=== PATIENT | male | born 1985 | race Caucasian/White ===

== ENCOUNTER 2016-06-08 14:44 | Emergency (ER) | payer OTHER ==
[2016-06-08 15:02] VITALS: BP 131/72; PULSE 71; TEMP 98.1; BMI 22.8
[2016-06-08] MEDS ORDERED: FAMOTIDINE 20 MG/50 ML IVPB 50 ML IVPB ONE ×2 (16:03→16:10)
[2016-06-08] MEDS ORDERED: ONDANSETRON 4 MG/2 ML VIAL IVPB ONE (16:03)
[2016-06-08] MEDS ORDERED: SODIUM CHLORIDE 1,000 ML IV STA ×2 (16:04→17:25)
[2016-06-08] MEDS ORDERED: ONDANSETRON 4 MG/2 ML VIAL ONE (16:10)
--- NOTE | 2016-06-08 16:11 | PDOC ---
History of Present Illness - General Chief Complaint: Vomiting/Diarrhea Stated Complaint: VOMITING Time Seen by Provider: 06/08/16 15:52 History Source: Patient Exam Limitations: No Limitations - History of Present Illness Initial Comments: 06/08/16 16:03 30 yo M with no significant PMHx presents with one day history of nausea and vomiting. He states that since yesterday he has had 5-7 bouts of non-bilious vomiting and diarrhea. He has some mild belly pain that he relates to vomiting. Accompanied by subjective fevers, and chills. Denies CP,STRONG,SOB, or palpitations. Timing/Duration: reports: constant, getting worse Quality: reports: moderate Abdominal Pain Onset Location: reports: epigastric Pain Radiation: reports: no radiation Activities at Onset: reports: none Past History - Travel Traveled outside of the country in the last 30 days: No Close contact w/someone who was outside of country & ill: No - Past Medical History Allergies/Adverse Reactions: Allergies Allergy/AdvReac Type Severity Reaction Status Date / Time No Known Allergies Allergy Verified 06/08/16 15:00 Home Medications: Ambulatory Orders No Home Medications 0 dose .ROUTE UTDICT 03/12/13 Ondansetron [Zofran -] 4 mg PO TID #21 tablet 06/08/16 Other medical history: DENIES. - Immunization History Td Vaccination: No - Psycho/Social/Smoking Cessation Hx Anxiety: No Suicidal Ideation: No Smoking Status: No Smoking History: Never smoked Number of Cigarettes Smoked Daily: 0 Hx Alcohol Use: No Review of Systems - Review of Systems Able to Perform ROS?: Yes Is the patient limited [place] proficient: No Constitutional: Yes: Chills, Fever, Loss of Appetite, Malaise, Weakness *Physical Exam - Vital Signs Last Vital Signs Temp Pulse Resp BP Pulse Ox 98.1 F 71 19 131/72 96 06/08/16 15:00 06/08/16 15:00 06/08/16 15:00 06/08/16 15:00 06/08/16 15:00 - Physical Exam General Appearance: Yes: Mild Distress HEENT: positive: EOMI, DEVON Neck: positive: Supple Respiratory/Chest: positive: Lungs Clear, Normal Breath Sounds, Accessory Muscle Use. negative: Respiratory Distress Cardiovascular: positive: Regular Rhythm, Regular Rate, S1, S2. negative: Edema , JVD, Murmur Vascular Pulses: Dorsalis-Pedis (R): 2+, Doralis-Pedis (L): 2+ Gastrointestinal/Abdominal: positive: Normal Bowel Sounds, Flat, Soft. negative : Tenderness Musculoskeletal: positive: Normal Inspection. negative: CVA Tenderness Extremity: positive: Normal Inspection, Normal Range of Motion Integumentary: positive: Normal Color, Dry, Warm. 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 P: * IVF with NS 2L bolus. * Zofran and pepcid * Will discharge home with Zofran. *DC/Admit/Observation/Transfer Diagnosis at time of Disposition: Viral gastroenteritis - Discharge Dispostion Admit: No - Prescriptions Prescriptions: Ondansetron [Zofran -] 4 mg PO TID #21 tablet - Referrals Referrals: Sasha Mao MD [Primary Care Provider] - - Patient Instructions Printed Discharge Instructions: DI for Viral Gastroenteritis -- Adult Additional Instructions: Please take medication as needed. Follow up with PCP in one week. Regular diet. Increase activity as tolerated. If symptoms worsen or develop fever/chills please return to ED. - Post Discharge Activity Work/School Note: Back to Work
--- NOTE | 2016-06-08 16:24 | PDOC ---
Attending Attestation - Resident Resident Name: Cheko Salinas - ED Attending Attestation I have performed the following: I have examined & evaluated the patient, The case was reviewed & discussed with the resident, I agree w/resident's findings & plan, Exceptions are as noted - HPI HPI: 06/08/16 16:22 Healthy 30-year-old male presents with persistent and nonbloody nausea/vomiting/ diarrhea for the last 2 or 3 days, abdominal cramping but no persistent pain. No recent travel, no recent antibiotics, no recent diet change. Positive sick contacts, nieces attend daycare and had similar symptoms. - Physicial Exam PE: 06/08/16 16:23 Vital signs normal. Dry mucosa, no pallor or jaundice. Abdomen is soft/nontender/nondistended. No right lower quadrant tenderness. - Medical Decision Making 06/08/16 16:23 Patient seen and evaluated with the resident. I agree with the overall evaluation, assessment, and management with the following summary of visit: 30-year-old male with symptoms most consistent with gastroenteritis, no red flags on history or physical exam, no peritoneal findings that would suggest focal infectious process. IV fluid rehydration Antacid, antiemetic Reassess, PO trial, and dispo
== END 2016-06-08 19:38 | disposition home or self-care (01) ==
LOC: JER 14:44
PROC: 3E033GC Introduction of Other Therapeutic Substance into Peripheral Vein, Percutaneous Approach (ICD-10-PCS; principal; 2016-06-08)
PROC: 3E0337Z Introduction of Electrolytic and Water Balance Substance into Peripheral Vein, Percutaneous Approach (ICD-10-PCS; 2016-06-08)
DX: A08.4 Viral intestinal infection, unspecified (principal); B97.89 Other viral agents as the cause of diseases classified elsewhere
CPT/HCPCS: 96361; 96365; 96375; 99283-25

== ENCOUNTER 2021-01-31 13:30 | Emergency (ER) | payer OTHER ==
[2021-01-31 13:59] VITALS: BP 122/76; PULSE 89; TEMP 98.6; BMI 24.3
[2021-02-02 00:07] LABS: SARS-CoV-2 NAA Detected (Not Detected)
== END 2021-01-31 15:27 | disposition home or self-care (01) ==
LOC: JER 13:30
DX: A08.4 Viral intestinal infection, unspecified (principal); J06.9 Acute upper respiratory infection, unspecified; Z11.52 Encounter for screening for COVID-19
CPT/HCPCS: 87804; 99283-25; C9803; U0003; U0005

== ENCOUNTER 2022-01-05 10:41 | Emergency (ER) | payer OTHER ==
[2022-01-05 10:55] VITALS: BP 115/82; PULSE 61; RESP 16; TEMP 98.6; BMI 22.1
[2022-01-05] MEDS ORDERED: IBUPROFEN 400 MG TABLET (FP) PO ONE ×2 (10:56→10:59)
== END 2022-01-05 11:52 | disposition home or self-care (01) ==
LOC: FER 10:41
DX: U07.1 COVID-19 (principal)
CPT/HCPCS: 0241U-QW; 99283-25

== ENCOUNTER 2023-02-05 16:34 | Emergency (ER) | payer OTHER ==
[2023-02-05 16:49] VITALS: BP 112/61; PULSE 83; RESP 20; TEMP 98.2; BMI 20.7
[2023-02-05] MEDS ORDERED: FAMOTIDINE 20 MG/50 ML IVPB 20 MG/50 ML MG IVPB ONE ×2 (18:06→18:27)
[2023-02-05] MEDS ORDERED: DICYCLOMINE HCL 20 MG TABLET PO ONE (18:06)
[2023-02-05] MEDS ORDERED: ACETAMINOPHEN 1000 MG/100 ML BAG IVPB ONE (18:06)
[2023-02-05] MEDS ORDERED: DICYCLOMINE HCL 10 MG CAPSULE ONE (18:11)
[2023-02-05] MEDS ORDERED: ACETAMINOPHEN INJECTION 100 ML IVPB ONE (18:11)
[2023-02-05 18:33] LABS: BASO % 0.9 % (0-2.0); EOS % 0.7 % (0-4.5); HEMATOCRIT 46.8 % (35.4-49); MCH 29.8 pg (25.7-33.7); MCHC 34.1 g/dl (32.0-35.9); MEAN CELL VOLUME 87.5 fl (80-96); MEAN PLT VOLUME 9.2 fl (7.5-11.1); MONO % 9.4 % (3.8-10.2); PLATELET COUNT 183 10^3/uL (134-434); RBC 5.35 M/mm3 (4.00-5.60); RDW 13.9 % (11.9-15.9); WHITE BLOOD COUNT 7.8 K/mm3 (4.0-10.0)
[2023-02-05] MEDS ORDERED: LACTATED RINGERS SOLUTION 1,000 ML/1,000 ML INFUS.BAG IV SCH (18:45)
[2023-02-05 19:05] LABS: POTASSIUM 3.8 mmol/L (3.5-5.1)
[2023-02-05 19:07] LABS: CALCIUM 8.9 mg/dL (8.5-10.1)
[2023-02-05 19:08] LABS: ALBUMIN 3.9 g/dl (3.4-5.0); BLOOD UREA NITROGEN 13.4 mg/dL (7-18); MAGNESIUM 1.9 mg/dL (1.8-2.4)
[2023-02-05 19:11] LABS: CREATININE 0.8 mg/dL (0.55-1.3); PHOSPHOROUS 3.7 mg/dL (2.5-4.9)
[2023-02-05 19:12] LABS: TOT PROT 7.4 g/dl (6.4-8.2)
[2023-02-05] MEDS ORDERED: ONDANSETRON *ODT* 4 MG TABLET SL ONE (19:30)
[2023-02-05] MEDS ORDERED: ONDANSETRON *ODT* 4 MG TABLET ONE (19:43)
== END 2023-02-05 20:17 | disposition home or self-care (01) ==
LOC: JER 16:34
PROC: 3E033NZ Introduction of Analgesics, Hypnotics, Sedatives into Peripheral Vein, Percutaneous Approach (ICD-10-PCS; principal; 2023-02-05)
PROC: 3E033GC Introduction of Other Therapeutic Substance into Peripheral Vein, Percutaneous Approach (ICD-10-PCS; 2023-02-05)
DX: R07.9 Chest pain, unspecified (principal); R11.2 Nausea with vomiting, unspecified; R10.9 Unspecified abdominal pain; Z20.822 Contact with and (suspected) exposure to COVID-19
CPT/HCPCS: 0241U-QW; 36415; 80053; 83690; 83735; 84100; 85025; 93005; 93010; 99284-25; Q0162

== ENCOUNTER 2023-05-02 21:34 | Emergency (ER) | payer OTHER ==
[2023-05-02 21:42] VITALS: BP 118/80; PULSE 95; RESP 18; TEMP 98.7; BMI 22.4
[2023-05-02] MEDS ORDERED: ACETAMINOPHEN 500 MG TABLET (FP) ONE (22:59)
[2023-05-02] MEDS ORDERED: guaiFENesin/D-METHORPHAN HB 10 ML UNIT-DOSE CUPS ONE (22:59)
[2023-05-02] MEDS ORDERED: predniSONE 20 MG TABLET (UD) ONE (22:59)
[2023-05-02] MEDS: ACETAMINOPHEN 500 MG TABLET (FP) PO ONE (23:01)
[2023-05-02] MEDS: guaiFENesin/D-METHORPHAN HB 10 ML UNIT-DOSE CUPS PO ONE (23:01)
[2023-05-02] MEDS: predniSONE 20 MG TABLET (UD) PO ONE (23:02)
[2023-05-03] MEDS ORDERED: predniSONE 20 MG TABLET (UD) PO SCH (10:00)
== END 2023-05-02 23:17 | disposition home or self-care (01) ==
LOC: JERFT 21:34
DX: M79.10 Myalgia, unspecified site (principal); R68.83 Chills (without fever); R05.9 Cough, unspecified; R53.83 Other fatigue; R51.9 Headache, unspecified; J10.1 Influenza due to other identified influenza virus with other respiratory manifestations; Z20.822 Contact with and (suspected) exposure to COVID-19
CPT/HCPCS: 0241U-QW; 71046-TC-FY; 93005; 93010; 99285-25